=== PATIENT | male | born 1955 | race Native Hawaiian/Other Pacific Islander ===

== ENCOUNTER 2020-02-03 13:39 | Emergency (ER) | payer OTHER ==
[~2020-02-03] VITALS: Ht 172.7 cm; Wt 90.7 kg
[2020-02-03 13:47] VITALS: BP 164/72; TEMP 97.5
== END 2020-02-03 17:42 | disposition home or self-care (01) ==
LOC: ED 13:39
DX: R07.0 Pain in throat (principal); R09.89 Other specified symptoms and signs involving the circulatory and respiratory systems; T18.128A Food in esophagus causing other injury, initial encounter
CPT/HCPCS: 96374; 99284; J1610